=== PATIENT | female | born 1950 | race Caucasian/White ===

== ENCOUNTER 2024-03-28 09:34 | Outpatient (AMB) | payer MEDICARE, SELFPAY ==
--- NOTE | 2024-03-28 09:40 | A.OFFVIS_ITS ---
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 The patient states that she 1st injured her right knee approximately 5 years ago. She had an MRI at that time which showed possible meniscus tearing. The patient re-injured her right knee several months ago while dancing. She twisted her knee and had acute onset of pain along the medial aspect of her knee. She has failed the last 6 weeks of conservative treatment. She has had cortisone injections in the past which gave her minimal relief. She has also done physical therapy exercises which aggravated her pain. She has tried Tylenol and Motrin which gave her minimal relief. She has had difficulty going up and down stairs because of her pain. She states that her right knee will give out several times per day. Allergies No Known Allergies Allergy (Verified 03/28/24 09:40) Medication List - Last Reconciled 03/28/24 by Andrea Brady MD cyclosporine 0.05% drps ophthalmic (eye) Physical Exam Const Other: Well-nourished well-developed very friendly female awake alert and oriented x3 in no acute distress Extrem Other: Bilateral lower extremity examination shows good capillary refill, no skin lesions noted, normal sensation light touch Right knee examination shows a minimal effusion, minimal crepitus with range of motion, tenderness along her medial joint line, positive Olu's test, no instability Results Reviewed Results Reviewed: X-rays of the patient's right knee show mild diffuse joint space narrowing, no acute bony abnormalities Assessment & Plan Assessment & Plan (1) Right knee pain: Code(s): M25.561 - Pain in right knee Category: Medical Plan Ms. Gautam presents with progressively worsening right knee pain and mechanical symptoms most likely due to a tear of her medial meniscus. Thus, I will send the patient for an MRI of her right knee for further evaluation. I will contact her by phone once the MRI results are available to discuss the findings and treatment options. She will continue with her activity modifications in the meantime. Feel free to call me at any time should questions regarding her orthopedic management arise. I spent 22 minutes in reviewing the patient's records and imaging studies, seeing the patient and documenting in the medical record. Orders: Orders MR knee RT wo con Today M25.561 - Pain in right knee XR knee RT 3V Today M25.561 - Pain in right knee Coding Level of Care Code Est Pt Level 3 (41089) Diagnoses Right knee pain M25.561
== END 2024-03-28 10:17 | disposition home or self-care (01) ==
PROVIDERS: PCP Internal Medicine; Visit Provider Orthopaedic Surgery
DX: M25.561 Pain in right knee (principal)
CPT/HCPCS: 99213

== ENCOUNTER 2024-03-28 12:38 | Outpatient (REF) | payer MEDICARE, SELFPAY ==
--- NOTE | ~2024-03-28 | XR_ITS ---
EXAMINATION: XR KNEE, RIGHT CLINICAL INFORMATION: Pain. COMPARISON: None available. TECHNIQUE: Three views of the right knee. FINDINGS: Large joint effusion with soft tissue swelling. Diffuse demineralization. Moderate narrowing of the medial compartment. Tiny posterior patellar spurs. Faint, amorphous tiny calcifications along the medial aspect of medial compartment of uncertain etiology, possibly representing chondrocalcinosis versus sequela of prior trauma. XR/XR knee RT 3V IMPRESSION: 1. Large joint effusion with soft tissue swelling. 2. Moderate narrowing of the medial compartment. 3. Faint, amorphous tiny calcifications along the medial aspect of medial compartment of uncertain etiology, possibly representing chondrocalcinosis versus sequela of prior trauma.
== END 2024-03-28 12:39 | disposition home or self-care (01) ==
LOC: HO.HOSX 12:38
PROVIDERS: Visit Provider Orthopaedic Surgery
DX: M25.561 Pain in right knee (principal)
CPT/HCPCS: 73562; 99212